=== PATIENT | female | born 1975 | race Caucasian/White ===

== ENCOUNTER 2020-03-04 05:35 | Emergency (ER) | payer SELFPAY ==
[~2020-03-04] VITALS: Ht 162.6 cm; Wt 59.0 kg
--- NOTE | 2020-03-04 05:45 | NUR ---
PT BIBRA FROM STREET C/O LEFT SIDED CHEST PAIN X3 WEEKS. PT ALSO C/O NAUSEA AND LEFT UPPER QUADRANT PAIN X3 WEEKS. PT DENIES SOB, HEADACHE, DIZZINESS. PT AAOX4. APPEARS UNCOMFORTABLE. VITAL SIGNS STABLE. RESPIRATIONS EVEN AND UNLABORED. SKIN WARM AND INTACT. NO ACUTE DISTRESS NOTED AT THIS TIME. PT PLACED ON CONTINUOUS GEOPHYSICAL SUPPORT SPECIALIST AND PULSE OX, WILL CONTINUE TO MONITOR.
--- NOTE | 2020-03-04 06:22 | NUR ---
MD AT BEDSIDE FOR EVALUATION
[2020-03-04] MEDS ORDERED: ONDANSETRON HCL/PF 4 MG/2 ML VIAL ONE (06:29)
[2020-03-04] MEDS ORDERED: KETOROLAC TROMETHAMINE 15 MG/ML VIAL ONE (06:29)
[2020-03-04] MEDS ORDERED: ONDANSETRON HCL/PF 4 MG/2 ML VIAL IVP ONE (06:30)
[2020-03-04] MEDS ORDERED: KETOROLAC TROMETHAMINE INJ 30 MG/ML VIAL IV ONE (06:30)
[2020-03-04] MEDS ORDERED: IV NS 0.9% 1,000 ML BAG IV ONE (06:30)
[2020-03-04] MEDS ORDERED: LORAZEPAM INJ 2 MG/ML VIAL IV ONE (06:30)
[2020-03-04 06:40] LABS: BASOPHILS % (AUTO) 0.3 % (0.0-2.0); EOSINOPHILS % (AUTO) 0.1 % (0.0-6.0); HEMATOCRIT 32 % (33-45); HEMOGLOBIN 10.2 g/dL (11.5-14.8); LYMPHOCYTES # (AUTO) 0.9 /CMM (0.8-4.8); MEAN CORPUSCULAR HGB CONC 32 g/dl (31.0-36.0); MEAN CORPUSCULAR VOLUME 79 fL (82-100); MONOCYTES # (AUTO) 0.5 /CMM (0.1-1.30); MONOCYTES % (AUTO) 5.4 % (2.0-12.0); NEUTROPHILS # (AUTO) 8.4 /CMM (1.8-8.9); NEUTROPHILS % (AUTO) 85.2 % (43.0-81.0); PLATELET COUNT (AUTO) 531 /CMM (150-450); RED BLOOD CELL COUNT(AUTO) 4.06 MIL/uL (4.0-5.2); WHITE BLOOD COUNT (AUTO) 9.9 K/uL (4.3-11.0)
[2020-03-04] MEDS ORDERED: LORAZEPAM INJ 2 MG/ML VIAL ONE (06:42)
[2020-03-04 06:48] LABS: CALCIUM, SERUM 8.3 mg/dL (8.5-10.1); CARBON DIOXIDE 29 mmol/L (21-32); CHLORIDE 99 mmol/L (98-107); CREATININE 0.7 mg/dL (0.6-1.3); GLUCOSE 95 mg/dL (74-106); POTASSIUM 3.1 mmol/L (3.5-5.1); SODIUM SERUM 137 mmol/L (136-145); UREA NITROGEN, BLOOD 10 mg/dL (7-18)
[2020-03-04 06:55] LABS: ALANINE AMINOTRANSFERASE 10 U/L (12-78); ALBUMIN 2.3 g/dL (3.4-5.0); ALKALINE PHOSPHATASE 108 U/L (46-116); ASPARTATE AMINOTRANSFERASE 15 U/L (15-37); BILIRUBIN,DIRECT 0.1 mg/dL (0.0-0.2); BILIRUBIN,TOTAL 0.5 mg/dL (0.2-1.0); LIPASE 16 U/L (73-393); TOTAL PROTEIN, SERUM 6.8 g/dL (6.4-8.2)
--- NOTE | 2020-03-04 07:25 | NUR ---
report received from Mervat Arriaga RN for [facility]ATH[facility]
--- NOTE | 2020-03-04 07:29 | NUR ---
Patient in bed asleep, easily arousable by voice. hooked to monitor, VSS, will continue to monitor accordingly.
--- NOTE | 2020-03-04 07:38 | NUR ---
provided w ham sandwich and gatorade. will bring food upon discharge.
--- NOTE | 2020-03-04 07:50 | NUR ---
IV removed. Catheter intact and site benign. Pressure and 4x4 applied to site. No bleeding noted. Patient given written and verbal discharge instructions. Patient verbalizes understanding of instructions. Patient is ambulatory with steady gait. Refuses offer of retirement placement. Patient given list of available shelters in surrounding area. Patient discharged with proper clothing, name band removed, all belongings returned to patient.
[2020-03-04 07:58] VITALS: BP 109/78
== END 2020-03-04 07:58 | disposition home or self-care (01) ==
LOC: ER 05:37
DX: K21.9 Gastro-esophageal reflux disease without esophagitis (principal); R10.13 Epigastric pain; R11.10 Vomiting, unspecified; Z59.0 Homelessness; Z98.84 Bariatric surgery status
CPT/HCPCS: 36415; 80048; 80076; 83690; 84484; 85025; 96361; 96374; 96375; 99285; J1885; J2060; J2405; J7030 ×2